=== PATIENT | female | born 1980 | race Caucasian/White ===

== ENCOUNTER → 2023-03-06 | Emergency (ER) | payer BC ==
[2023-03-06 16:37] LABS: Absolute Lymphocytes (CBC) 1.2 K/uL (0.7-4.9); Hematocrit 38.6 % (36.0-45.0); MCV 85.5 fL (80-100); MPV 7.5 fL (7.6-11.3); Platelets 373 thou/uL (152-406); RBC Red Blood Cell Count 4.51 M/uL (3.86-4.86)
[2023-03-06 16:39] LABS: Specific Gravity 1.007 (1.005-1.030); Urine Bacteria None Seen /HPF (<20); Urine Bilirubin NEGATIVE (Negative); Urine Blood 3+ (OVER) (Negative); Urine Clarity Clear (Clear); Urine Color Colorless (Yellow); Urine Glucose 4+ (Over) (Negative); Urine Mucus Slight /HPF (None Seen); Urine Protein NEGATIVE (Negative); Urine RBC <5 /HPF (None Seen); Urine Urobilinogen Normal (Normal); Urine pH 7.5 (5.0-7.0)
--- NOTE | 2023-03-06 18:08 | RAD REPORT ---
EXAM DESCRIPTION: US - Transvaginal OB - 03/06/2023 5:26 pm CLINICAL HISTORY: vaginal bleeding;Abd cramping, COMPARISON: No comparisons TECHNIQUE: Sonographic grayscale and color flow images of a first-trimester were obtained through transvaginal and transabdominal approach. FINDINGS: Uterus is retroflexed measuring 7.5 cm in length. Ovoid collection of anechoic fluid near the uterine fundus measuring 1.4 cm in greatest axial dimensi on. No pole or cardiac pulsations are identified. Linear fluid present along the lower ut erine segment and cervix, please note the patient is actively passing blood clots. No yolk sac is visualized. Maternal ovaries are not visualized either transabdominally or transvaginally. No free fluid. IMPRESSION: 1. Ovoid fluid collection near the uterine fundus, may represent an early , whi ch would be dated at 6 weeks and 2 days given the size of the collection, however this may represent residual blood clot material following demise. Please correlate clinically and with serial beta HCG levels. 2. Exam is limited by nonvisualization of either ovary.
--- NOTE | 2023-03-06 18:58 | ER ---
Nurse's Notes [facility] Name: Erin Del Real Age: 42 yrs Sex: Female : 1980 Arrival Date: 03/06/2023 Time: 15:02 Bed 10 Private MD: Diagnosis: Threatened Presentation: 03/06 15:12 Chief complaint: Patient states: 5 WEEKS VAGINAL BLEED. BLEEDING STARTED LAST db NIGHT. Coronavirus screen: Client denies travel out of the [place] in the last 14 days. At this time, the client does not indicate any symptoms associated with coronavirus-19. Coronavirus screen: Vaccine status: Patient reports receiving the 2nd dose of the covid vaccine. Ebola Screen: Patient negative for fever greater than or equal to 101.5 degrees Fahrenheit, and additional compatible Ebola Virus Disease symptoms Patient denies exposure to infectious person. Patient denies travel to an Ebola-affected area in the 21 days before illness onset. No symptoms or risks identified at this time. Initial Sepsis Screen: Does the patient meet any 2 criteria? No. Patient's initial sepsis screen is negative. Does the patient have a suspected source of infection? No. Patient's initial sepsis screen is negative. Risk Assessment: Do you want to hurt yourself or someone else? Patient reports no desire to harm self or others. Onset of symptoms was March 06, 2023. 15:12 Method Of Arrival: Ambulatory db 15:12 Acuity: AVIS 3 db Triage Assessment: 15:14 General: Appears in no apparent distress. comfortable, Behavior is calm, cooperative. db Pain: Denies pain. Respiratory: Airway is patent Respiratory effort is even, unlabored, Respiratory pattern is regular, symmetrical. : Reports vaginal bleeding that is. 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 - Social history:: Smoking status: Patient denies any tobacco usage or history of. Screenin:09 [facility] ED Fall Risk Assessment (Adult) History of falling in the last 3 months, db including since admission No falls in past 3 months (0 pts) Score/Fall Risk Level 0 - 2 = Low Risk Oriented to surroundings, Maintained a safe environment. Abuse screen: Denies threats or abuse. Denies injuries from another. Nutritional screening: No deficits noted. Tuberculosis screening: No symptoms or risk factors identified. Assessment: 17:09 Obstetrical Assessment: General assessment: awake and alert. Reassessment: Patient db appears in no apparent distress at this time. Patient and/or family updated on plan of care and expected duration. Pain level reassessed. Patient is alert, oriented x 3, equal unlabored respirations, skin warm/dry/pink. 19:12 Reassessment: Patient appears in no apparent distress at this time. Patient and/or iw family updated on plan of care and expected duration. Pain level reassessed. Patient is alert, oriented x 3, equal unlabored respirations, skin warm/dry/pink. Pt states " I passed it, I had a miscarriage." Provider notified. No new orders given. Pt verbalized understanding of D/c and follow up instructions. Denies questions or concerns. Vital Signs: 15:12 BP 158 / 93; Pulse 89; Resp 16; Temp 98.1; Pulse Ox 99% ; Weight 83.91 kg (R); Height 5 db ft. 6 in. ; Pain 0/10; 15:12 Body Mass Index 29.86 (83.91 kg, 167.64 cm) db 15:12 Pain Scale: Adult db ED Course: 15:04 Patient arrived in ED. im 15:14 Triage completed. db 15:14 Arm band placed on Patient placed in waiting room. db 15:24 Tan Sawyer PA is PHCP. cp 15:24 Alan Medina MD is Attending Physician. cp 16:20 Inserted saline lock: 20 gauge in right antecubital area, using aseptic technique. db Blood collected. 17:27 US Transvaginal Ob In Process Unspecified. EDMS 19:12 Patient has correct armband on for positive identification. Bed in low position. Call iw light in reach. Side rails up X 1. Client placed on continuous cardiac and pulse oximetry monitoring. NIBP monitoring applied. clinical research monitor on. 19:12 No provider procedures requiring assistance completed. IV discontinued, intact, iw bleeding controlled, No redness/swelling at site. Pressure dressing applied. Administered Medications: No medications were administered Medication: 19:12 VIS not applicable for this client. iw Outcome: 18:57 Discharge ordered by MD. cp 19:12 Discharged to home ambulatory, iw 19:12 Condition: stable 19:12 Discharge instructions given to patient, Instructed on discharge instructions, follow up and referral plans. Demonstrated understanding of instructions, follow-up care, 19:14 Patient left the ED. iw Signatures: Dispatcher [employer] EDBelen Schaeffer RN RN iw Tan Sawyer PA PA cp Benton, Danielle, RN RN db Svetlana Haddad Corrections: (The following items were deleted from the chart) 15:14 15:14 PMHx: Unable to Obtain; darlyn santizo
--- NOTE | 2023-03-06 18:58 | EDPHYS ---
Physician Documentation [facility] Name: Erin Del Real Age: 42 yrs Sex: Female : 1980 Arrival Date: 03/06/2023 Time: 15:02 Bed 10 Private MD: ED Physician Alan Medina HPI: 03/06 15:40 This 42 yrs old Female presents to ER via Ambulatory with complaints of Vaginal cp Bleeding, + Preg <12wks. 15:40 The patient presents to the emergency department with abdominal pain, of the suprapubic cp area and left lower quadrant, that started today, vaginal bleeding, that is light. The estimated gestational age is 5 weeks. 15:40 course: care: none, Ultrasound: the patient has not had an cp ultrasound. Previous pregnancies: in previous pregnancies patient has had , no complications. Associated signs and symptoms: Pertinent negatives: dysuria, fever. 15:40 Patient reports hx of irregular menstrual cycles and last menstrual cycle was cp 12-22-2022. Reports she believes she is about 5 weeks . Took home test. 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 - Social history:: Smoking status: Patient denies any tobacco usage or history of. ROS: 15:45 Constitutional: Negative for body aches, chills, fever, poor PO intake, cp 15:45 Eyes: Negative for injury, pain, redness, and discharge, cp 15:45 Cardiovascular: Negative for chest pain, 15:45 Respiratory: Negative for cough, shortness of breath, wheezing, 15:45 Abdomen/GI: Negative for abdominal pain, vomiting, diarrhea, constipation, 15:45 : Positive for vaginal bleeding, Negative for urinary symptoms, 15:45 Neuro: Negative for dizziness, headache, weakness, 15:45 All other systems are negative, Exam: 15:50 Constitutional: The patient appears in no acute distress, alert, awake, non-toxic, well cp developed, well nourished, overweight 15:50 Head/Face: Normocephalic, atraumatic. cp 15:50 Eyes: Periorbital structures: appear normal, Conjunctiva: normal, no exudate, no injection, Lids and lashes: appear normal, bilaterally, 15:50 ENT: External ear(s): are unremarkable, Nose: is normal, Mouth: Lips: moist, Oral mucosa: moist, Posterior pharynx: Airway: no evidence of obstruction, patent, 15:50 Chest/axilla: Inspection: normal, 15:50 Cardiovascular: Rate: normal, 15:50 Respiratory: the patient does not display signs of respiratory distress, Respirations: normal, no use of accessory muscles, no retractions, labored breathing, is not present, 15:50 Abdomen/GI: Inspection: abdomen appears normal, Bowel sounds: active, all quadrants, Palpation: soft, in all quadrants, mild abdominal tenderness, in the suprapubic area and left lower quadrant, Vital Signs: 15:12 BP 158 / 93; Pulse 89; Resp 16; Temp 98.1; Pulse Ox 99% ; Weight 83.91 kg (R); Height 5 db ft. 6 in. ; Pain 0/10; 15:12 Body Mass Index 29.86 (83.91 kg, 167.64 cm) db 15:12 Pain Scale: Adult db MDM: 15:24 Patient medically screened. cp 18:55 Data reviewed: vital signs, nurses notes, lab test result(s), radiologic studies, cp ultrasound. 18:55 Counseling: I had a detailed discussion with the patient and/or guardian regarding the cp historical points, exam findings, and any diagnostic results supporting the discharge/admit diagnosis, lab results, radiology results, the need for outpatient follow up, an OB/Gyne specialist, to return to the emergency department if symptoms worsen or persist or if there are any questions or concerns that arise at home. ED course: VSS. Patient reports bleeding a little heavier. Discussed results of US and blood work. Will discharge to home for continued monitoring and repeat beta-hcg in 48 hours. 03/06 15:34 Order name: Abo/rh Typing; Complete Time: 16:59 cp 03/06 15:34 Order name: Basic Metabolic Panel; Complete Time: 17:42 cp 03/06 17:42 Interpretation: Normal except: NA 133; GLUC 262. cp 03/06 15:34 Order name: CBC with Diff; Complete Time: 16:59 cp 03/06 17:42 Interpretation: Normal except: MPV 7.5. cp 03/06 15:34 Order name: Test, Urine; Complete Time: 16:59 cp 03/06 15:34 Order name: Quantitative Hcg; Complete Time: 17:42 cp 03/06 17:42 Interpretation: Abnormal: HCGQ 1205. cp 03/06 15:34 Order name: Urinalysis w/ reflexes; Complete Time: 16:59 cp 03/06 17:43 Interpretation: Normal except: UGLUC 4+ (Over); UBLD 3+ (OVER); UPH 7.5. cp 03/06 16:59 Order name: US Transvaginal Ob; Complete Time: 18:51 cp 03/06 15:34 Order name: IV Saline Lock; Complete Time: 17:08 cp 03/06 15:34 Order name: Labs collected and sent; Complete Time: 17:08 cp 03/06 15:34 Order name: NPO; Complete Time: 17:08 cp Administered Medications: No medications were administered Disposition: 19:25 Co-signature as Attending Physician, Alan Medina MD I reviewed the patient's care rt provided by the Advanced Practice Provider and agree with the diagnosis and treatment plan. Disposition Summary: 03/06/23 18:57 Discharge Ordered Notes: Location: Home cp Problem: new cp Symptoms: are unchanged cp Condition: Stable cp Diagnosis - Threatened cp Followup: cp - With: Private Physician - When: 48 Hours - Reason: Repeat Beta-HCG (48 Hours) Discharge Instructions: - Discharge Summary Sheet cp - Care cp - Threatened Miscarriage cp - Vaginal Bleeding During , First Trimester cp - First Trimester of cp - Activity Restriction During cp Forms: - Medication Reconciliation Form cp - Thank You Letter cp - Antibiotic Education cp - Prescription Opioid Use cp - Patient Portal Instructions cp - Leadership Thank You Letter cp Signatures: Dispatcher [employer] Tan Joy PA PA cp [place] RN RN db [place], Ryan, MD MD rt Corrections: (The following items were deleted from the chart) 15:14 15:14 PMHx: Unable to Obtain; darlyn db 22:28 15:40 The estimated gestational age is 4 weeks, cp cp
[2023-03-06 20:02] VITALS: BP 158/93; TEMP 98.1; O2SAT 99
== END ==
LOC: ER 15:02
DX: O20.0 Threatened abortion (principal); Z3A.01 Less than 8 weeks gestation of pregnancy
CPT/HCPCS: 36415; 76817; 80048; 81001; 81025; 84702; 85025; 86900; 86901; 99284